=== PATIENT | male | born 2000 | race Caucasian/White ===

== ENCOUNTER 2021-08-30 15:20 | Emergency (ER) | payer BC ==
[~2021-08-30] VITALS: Ht 180.3 cm; Wt 131.5 kg
[2021-08-30 15:40] VITALS: BP 146/77
[2021-08-30 17:02] LABS: BASOPHILS % (AUTO) 0.1 % (0.0-2.0); EOSINOPHILS % (AUTO) 0.1 % (0.0-4.0); HEMATOCRIT 42.4 % (36-52); HEMOGLOBIN 14.2 g/dL (12.0-18.0); LYMPHOCYTES % (AUTO) 9.1 % (20.5-51.1); MEAN CORPUSCULAR HEMOGLOBIN 28 pg (27-31); MEAN CORPUSCULAR HGB CONC 34 g/dL (33-37); MEAN CORPUSCULAR VOLUME 83.2 fL (80-94); MONOCYTES # (AUTO) 0.7 K/uL (0.8-1.0); MONOCYTES % (AUTO) 6.3 % (1.7-9.3); NEUTROPHILS # (AUTO) 9.2 K/uL (1.8-7.7); NEUTROPHILS % (AUTO) 84.4 % (42.2-75.2); PLATELET COUNT (AUTO) 277 K/uL (140-450); RED CELL DISTRIBUTION WIDTH 13.3 % (11.6-13.7); WHITE BLOOD COUNT (AUTO) 10.9 K/uL (4.5-11.0)
[2021-08-30 17:12] LABS: ANION GAP 12.5 (8-16); CARBON DIOXIDE 28.3 mmol/L (21-32); POTASSIUM 3.8 mmol/L (3.5-5.1)
[2021-08-30 17:18] LABS: ALBUMIN 3.8 g/dL (3.4-5.0); TOTAL BILIRUBIN 0.4 mg/dL (0.0-1.0)
[2021-08-30] MEDS ORDERED: KETOROLAC 30 MG/ML VIAL IM ONE (19:10)
--- NOTE | 2021-08-30 19:49 | NUR ---
PT AMBULATED TO BED 05
--- NOTE | 2021-08-30 19:55 | NUR ---
RETURNED FROM CT TAKEN TO BED #5
--- NOTE | 2021-08-30 20:49 | NUR ---
Dr. Russo examining patient.
--- NOTE | 2021-08-30 20:54 | NUR ---
PT AMBULATE TO BATHROOM
[2021-08-30] MEDS ORDERED: KETOROLAC 30 MG/ML VIAL ONE (20:55)
[2021-08-30] MEDS ORDERED: [UNRECOGNIZED DRUG - CODE] PO (20:58)
[2021-08-30] MEDS ORDERED: IBUP-2213 PO (20:58)
[2021-08-30 21:21] VITALS: BP 140/87
--- NOTE | 2021-08-30 21:21 | NUR ---
Patient discharged with v/s stable. Written and verbal after care instructions given and explained. Patient alert, oriented and verbalized understanding of instructions. Ambulatory with steady gait. All questions addressed prior to discharge. ID band removed. Patient advised to follow up with PMD. Rx of IBUPROFEN AND OXYCODON.ACETAMINOPHIN given. Opportunity to ask questions provided and answered.
--- NOTE | 2021-08-30 21:37 | NUR ---
The patient's care was reviewed and supervised by Maria E Huffman RN.
== END 2021-08-30 21:21 | disposition home or self-care (01) ==
LOC: MED 15:20
DX: K63.89 Other specified diseases of intestine (principal); F17.210 Nicotine dependence, cigarettes, uncomplicated; Z79.899 Other long term (current) drug therapy
CPT/HCPCS: 36415; 74176; 80053; 81002; 83690; 85025; 96372; 99284; J1885